=== PATIENT | female | born 1960 | race Caucasian/White ===

== ENCOUNTER → 2021-04-27 | Day surgery (SDC) | payer MEDICARE ==
[~2021-04-27] VITALS: Ht 167.6 cm; Wt 92.5 kg
[~2021-04-27] MED LIST: AIMOVIG AU140 MG/1 M SC; ARMOUR THYROID15 MG PO; CLARITIN10 MG PO; COMPAZINE10 MG PO; FLEXERIL5 MG PO; GABAPENTIN600 MG PO; HCTZ12.5 MG PO; IMITREX100 M1 PO; LEXAPRO20 MG PO; MINOCYCLINE HCL50 M1 PO; MIRAPEX0.25 MG PO; MIRAPEX0.5 MG PO; NORCO 5-325 TA1 EACH PO; PRINIVIL20 M1 PO; TRILEPTAL600 MG PO; UBRELVY100 MG PO; ZOCOR40 M1 PO; ZONEGRAN100 MG PO
[2021-04-27 07:49] LABS: HCT 43.5 % (37.0-47.0); HGB 14.7 g/dl (12.5-16.0); MCH 30.1 pg (25.0-31.0); MCHC 33.8 g/dL (32.0-36.0); MCV 89.1 fL (78.0-100.0); MPV 10.6 fL (6.0-9.5); RBC 4.88 M/uL (4.20-5.40); RDW 12.5 % (11.5-14.0); WBC 6.7 K/uL (4.0-10.5)
[2021-04-27 08:09] LABS: ALBUMIN 3.5 g/dL (3.4-5.0); BILIRUBIN - TOTAL 0.3 mg/dL (0.2-1.0); BUN/CREAT RATIO (CALC) 16.1 RATIO; CREATININE 0.87 mg/dL (0.51-0.95); GLOBULIN (CALCULATION) 3.5 g/dL
== END | disposition home or self-care (01) ==
LOC: FAS 07:13
PROVIDERS: Surgery
DX: K80.10 Calculus of gallbladder with chronic cholecystitis without obstruction (principal); K76.0 Fatty (change of) liver, not elsewhere classified; K42.9 Umbilical hernia without obstruction or gangrene; F41.9 Anxiety disorder, unspecified; F32.9 Major depressive disorder, single episode, unspecified
CPT/HCPCS: 36415; 74300; 80053; 93005; C1758; J1170; J2405; J2704; J2710; J3010; J7120; Q9967

== ENCOUNTER → 2021-09-22 | Day surgery (SDC) | payer MEDICARE ==
[~2021-09-22] VITALS: Ht 167.6 cm; Wt 90.7 kg
[~2021-09-22] MED LIST changes: +DESYREL50 MG PO; +OZEMPIC0.25 MG/0. SC
[2021-09-22 09:20] LABS: HCT 45.1 % (37.0-47.0); HGB 15.2 g/dl (12.5-16.0); MCH 30.5 pg (25.0-31.0); MCHC 33.7 g/dL (32.0-36.0); MCV 90.6 fL (78.0-100.0); MPV 10.4 fL (6.0-9.5); RBC 4.98 M/uL (4.20-5.40); RDW 12.2 % (11.5-14.0); WBC 7.4 K/uL (4.0-10.5)
[2021-09-22 09:44] LABS: ALBUMIN 3.7 g/dL (3.4-5.0); BILIRUBIN - TOTAL 0.3 mg/dL (0.2-1.0); BUN/CREAT RATIO (CALC) 17.8 RATIO; CREATININE 1.01 mg/dL (0.51-0.95); GLOBULIN (CALCULATION) 3.4 g/dL; POTASSIUM 3.9 mmol/L (3.5-5.1); TOTAL PROTEIN 7.1 g/dL (6.4-8.2)
== END | disposition home or self-care (01) ==
LOC: FAS 08:27
PROVIDERS: Surgery
DX: R19.7 Diarrhea, unspecified (principal); I12.9 Hypertensive chronic kidney disease with stage 1 through stage 4 chronic kidney disease, or unspecified chronic kidney disease; E11.22 Type 2 diabetes mellitus with diabetic chronic kidney disease; N18.9 Chronic kidney disease, unspecified; E78.5 Hyperlipidemia, unspecified; F41.9 Anxiety disorder, unspecified; F32.A Depression, unspecified; Z88.5 Allergy status to narcotic agent; Z79.899 Other long term (current) drug therapy
CPT/HCPCS: 36415; 80053; 84443; J2704; J7120